=== PATIENT | female | born 1995 | race Hispanic/Latino ===

== ENCOUNTER 2018-02-08 14:31 | Emergency (ER) | payer OTHER ==
--- NOTE | 2018-02-08 17:01 | CT ---
CT BRAIN PERFORMED WITHOUT CONTRAST ENHANCEMENT: HISTORY: Head trauma. Transient bilateral vision loss. FINDINGS: The ventricular and cisternal system are within normal limits. There are no signs of intracerebral h emorrhage or extraaxial fluid collections. The mastoid air cells and visualized sinuses are clear. IMPRESSION: No acute intracranial abnormalities. POS: [facility]
== END 2018-02-08 17:19 | disposition home or self-care (01) ==
LOC: SCSER 14:31
DX: R51 Headache (principal)
CPT/HCPCS: 70450